=== PATIENT | female | born 1950 | race Caucasian/White ===

== ENCOUNTER 2017-03-14 14:59 | Outpatient (CLI) | payer BC ==
--- NOTE | 2017-03-14 16:31 | CT ---
CT LUMBAR SPINE NONCONTRAST: Date: 03/14/17 HISTORY: Low back pain. FINDINGS: Vertebral body heights and AP alignment are maintained. S-shaped rotatory scoliotic curvature is appa rent on the coronal images. There is osteophytosis throughout the vertebral bodies and facets. Images including the abdomen show diffuse hypodensity of the liver. There is calcification in the art erial structures. T12-L1 and L1-L2: Mild osteophytosis is present. The central canal and neural foramina are patent. L2-3: Posterior disc bulge, along with facet joint hypertrophy and ligamentous thickening, result in mild c entral canal and left foraminal stenosis. L3-L4: Posterior disc bulge, along with facet joint hypertrophy and ligamentous thickening, result in mild s tenosis of the central canal at each neural foramen. L4-5: Posterior disc bulge, along with facet joint hypertrophy and ligamentous thickening, result in mild s tenosis of the central canal. There is mild right and moderate left foraminal stenosis. L5-S1: Mild osteophytosis is present. The central canal and neural foramina remain patent. IMPRESSION: 1. Mild multilevel degenerative changes throughout the lumbar spine, with central canal and foramina l stenosis as detailed above. 2. Atherosclerosis. POS: KATHIE
== END 2017-03-14 15:00 | disposition home or self-care (01) ==
LOC: SCSCT 14:59
PROVIDERS: ATTEND Specialist
DX: M51.16 Intervertebral disc disorders with radiculopathy, lumbar region (principal); M99.83 Other biomechanical lesions of lumbar region; I70.90 Unspecified atherosclerosis
CPT/HCPCS: 72131

== ENCOUNTER 2017-04-01 08:39 | Outpatient (CLI) | payer BC ==
[2017-04-01 09:51] LABS: Hemoglobin 14.2 g/dL (12.0-16.0)
[2017-04-01 10:12] LABS: Anion Gap 12 mmol/L (10-20); BUN (Urea Nitrogen) 19 mg/dL (9.8-20.1); Calc. Creatinine Clearance 0 mL/min (70-130); Calcium 10.4 mg/dL (7.8-10.44); Carbon Dioxide 28 mmol/L (23-31); Chloride 101 mmol/L (98-107); Estimated GFR-MDRD 68; Glucose 111 mg/dL (80-115); Potassium 4.4 mmol/L (3.5-5.1); Sodium 137 mmol/L (136-145)
--- NOTE | 2017-06-08 13:35 | EKG ---
Test Reason : Blood Pressure : / mmHG Vent. Rate : 068 BPM Atrial Rate : 068 BPM P-R Int : 140 ms QRS Dur : 082 ms QT Int : 408 ms P-R-T Axes : 034 000 040 degrees QTc Int : 433 ms Normal sinus rhythm Normal ECG When compared with ECG of 27-OCT-2015 10:41, No significant change was found Confirmed by BEV FIGUEROA MD ([id number]) on 06/08/2017 1:35:24 PM Referred By: CHIRAG Confirmed By:BEV FIGUEROA MD
== END 2017-04-01 08:40 | disposition home or self-care (01) ==
LOC: LABBT 08:39
PROVIDERS: ATTEND Neurological Surgery
DX: G95.9 Disease of spinal cord, unspecified (principal)
CPT/HCPCS: 80048; 85014; 85018; 93005; 93010

== ENCOUNTER 2017-04-03 06:29 | Day surgery (SDC) | payer BC ==
--- NOTE | 2017-04-03 01:39 | HP ---
HISTORY OF PRESENT ILLNESS: Ms. Lemos is a 67-year-old woman who is known to us for previous ACDF at C6-C7 a few years ago, who returns now with increasing C6 radiculopathies bilaterally. She had a rec ent MRI scan at [facility], which reveals prominent at C5-C6 disk osteophyte complex that ma tches her symptoms rather well. She has had injections by Dr. Gaytan, and while they do help, the y only last for a short-lived period of time. She wants to move forward with surgical intervention i f possible. PAST MEDICAL HISTORY: Significant for hypertension, hyperlipidemia, anxiety, depression, and diabete s. CURRENT MEDICATIONS: Lisinopril, simvastatin, Cymbalta, metformin, aspirin, Prilosec, and vitamin C and D. ALLERGIES: CELEBREX, CIPRO, IODINE, and DOXYCYCLINE. PHYSICAL EXAMINATION: The patient is alert and oriented x3. Gait is normal, no ataxia. Upper extre mity motor exam reveals full strength bilaterally in extremities. Reflexes are equal and prese nt bilaterally at the biceps. There is no notable discernible area of paraesthesia or altered sensat ion to the upper extremities. ASSESSMENT: Cervical radiculopathy. PLAN: Dr. Payton met with the patient, reviewed imaging and ultimately advocated for a reoperation at C5-C6 ACDF with removal of hardware at C6-C7. He explained to the patient the risks, benefits, and alternatives to the procedure. The patient expressed understanding and would like to move forward wi surgery as discussed. I do believe the patient is mentally competent and capable of making medica l decisions for herself and we will move forward with surgery as planned. Catalino Morley PA-C, dictating under Dr. Payton.
[2017-04-03] MEDS ORDERED: Thrombin 5000 UNITS/5 ML VIAL ONE (07:17)
[2017-04-03] MEDS ORDERED: Clindamycin/D5W 900 mg/50 ml Premix Bag ONE (07:24)
[2017-04-03] MEDS ORDERED: Lidocaine 1% w/Epinephrine 1:200K 30 ML VIAL ONE (07:42)
[2017-04-03] MEDS ORDERED: Scopolamine 1.5 mg/72 hour Patch ONE (07:49)
[2017-04-03] MEDS ORDERED: Fentanyl 100 MCG/2 ML VIAL ONE ×2 (08:08→10:06)
[2017-04-03] MEDS ORDERED: Ondansetron HCl/PF 4 MG/2 ML Vial ONE ×2 (10:28→16:30)
--- NOTE | 2017-04-03 10:58 | OP ---
DATE OF PROCEDURE: 04/03/2017 SURGEON: Jameel Payton M.D. BUFFING WHEEL FORMER AUTOMATIC: Catalino Morley PA-C. COSURGEON: Dr. Goldy Ramos. DIAGNOSIS: Cervical radiculopathy. PROCEDURES PERFORMED: Removal of anterior cervical instrumentation, anterior cervical diskectomy and fusion, C5-C6. ANESTHESIA: General. TECHNIQUE: The patient was brought in to the operating room and placed under general anesthesia. Sh e was placed on the table in a supine position. The old anterior cervical incision was identified an d prepped and draped in the usual sterile fashion. Following an appropriate operative pause, Dr. Drake entered the field and was responsible for the exposure down to the prevertebral space, whi ch will be dictated in a separate note. Once the access was gained to the prevertebral space, we scarlett ntified the old plate, which was removed in its entirety. We then redirected our attention to the le sarah above where an annulotomy was performed in the C5-C6 disk space. All disk materials as well as a nterior and posterior osteophytes were removed. After complete decompression, a 6 mm lordotic PEEK c age packed with allograft and autograft material was placed within the interbody space. An anterior cervical plate was then fashioned to the front of the spine and secured with a total of 4 fixed screw s. Midline and lateral structures were inspected and found to be free from significant trauma. The wound was irrigated. Hemostasis was maintained throughout. The wound was then closed in anatomic la yers and a pressure dressing was applied. There were no known procedural complications.
[2017-04-03] MEDS ORDERED: HYDROcodone/Acetaminophen 5/325 mg Tablet ONE (12:32)
[2017-04-03] MEDS ORDERED: Lidocaine 1% PF 5 ML VIAL ONE (16:30)
[2017-04-03] MEDS ORDERED: PHENYLEPHRINE-NS 100 MCG/ML 10 ML SYRINGE ONE (16:30)
[2017-04-03] MEDS ORDERED: PROPOFOL 200 MG/20 ML VIAL ONE (16:30)
[2017-04-03] MEDS ORDERED: Dexamethasone 20 MG/5 ML VIAL ONE (16:30)
[2017-04-03] MEDS ORDERED: ePHEDrine/0.9% NaCl/PF SYRINGE 50 mg/10 ml ONE (16:30)
--- NOTE | 2017-04-04 17:33 | OP ---
PREOPERATIVE DIAGNOSES: 1. Cervical myelopathy. 2. Need for anterior approach for anterior cervical diffuse in surgery. SURGEON: Goldy Ramos M.D. CANE LOADER: Catalino Morley PA-C ESTIMATED BLOOD LOSS: 0 mL. ANESTHESIA: GETA with laryngeal nerve monitor. PROCEDURE: Anterior approach for anterior cervical disc fusion surgery. PROCEDURE IN DETAIL: The patient was taken to the operating room and placed on the table. General e ndotracheal anesthesia was obtained by the Anesthesia staff. Using the direct laryngoscope, the skyler ngeal electrodes were confirmed to be between the true vocal cords bilaterally. Tube was then secure d in the midline of the upper lip. Following this, a shoulder roll was placed. The patient was then prepped and draped in standard surgical fashion. Following this, a previous incision was then reinc ised using a 10 blade and was carried through skin, subcutaneous tissue, and the platysmal layer. Paz bplatysmal flaps were elevated superiorly and inferiorly and the skin was retracted. Following this, the sternocleidomastoid muscle was identified and dissection was carried medial and anterior to the sternocleidomastoid. The laryngeal apparatus along with the recurrent laryngeal nerve was retracted medially as the great vessels were retracted laterally. Adequate exposure of the previous plate was provided for Dr. Douglas Payton who continued the procedure. At this point, the procedure was turned over to Dr. Douglas Payton for completion.
== END 2017-04-03 13:05 | disposition home or self-care (01) ==
LOC: SDC 06:29
PROVIDERS: ATTEND Neurological Surgery
PROC: 0RT30ZZ Resection of Cervical Vertebral Disc, Open Approach (ICD-10-PCS; principal; 2017-04-03)
PROC: 0RG10A0 Fusion of Cervical Vertebral Joint with Interbody Fusion Device, Anterior Approach, Anterior Column, Open Approach (ICD-10-PCS; principal; 2017-04-03)
DX: M54.12 Radiculopathy, cervical region (principal); M25.78 Osteophyte, vertebrae; G95.9 Disease of spinal cord, unspecified; I10 Essential (primary) hypertension; E78.5 Hyperlipidemia, unspecified; F32.9 Major depressive disorder, single episode, unspecified; F41.9 Anxiety disorder, unspecified; E11.9 Type 2 diabetes mellitus without complications; K21.9 Gastro-esophageal reflux disease without esophagitis; M81.0 Age-related osteoporosis without current pathological fracture; Z14.8 Genetic carrier of other disease; Z86.73 Personal history of transient ischemic attack (TIA), and cerebral infarction without residual deficits; Z91.81 History of falling; Z79.82 Long term (current) use of aspirin; Z79.84 Long term (current) use of oral hypoglycemic drugs; Z79.899 Other long term (current) drug therapy; Z88.1 Allergy status to other antibiotic agents; Z88.6 Allergy status to analgesic agent; Z91.013 Allergy to seafood; Z91.030 Bee allergy status; Z91.041 Radiographic dye allergy status; Z98.51 Tubal ligation status; Z98.1 Arthrodesis status; Z90.710 Acquired absence of both cervix and uterus; Z90.722 Acquired absence of ovaries, bilateral; Z98.890 Other specified postprocedural states
CPT/HCPCS: 76001; 96374; C1713; C1776; J1100; J2001; J2405; J2704; J3010; J3490

== ENCOUNTER 2017-05-16 08:46 | Outpatient (CLI) | payer BC ==
--- NOTE | 2017-05-16 09:44 | RAD ---
THERE VIEWS CERVICAL SPINE: Date: 04-19-14 History: Re-evaluate surgery, cervical radiculopathy. FINDINGS: Anterior discectomy and fusion hardware present at C5-6. There is an intervertebral disc device at C5 -6 and C6-7. No significant anterolisthesis or retrolisthesis seen within the cervical spine. There is mild soft t issue swelling in the prevertebral space ventral to the anterior screw and plate fixation hardware, l ikely associated with recent surgery. Clinical correlation is required. Open mouth odontoid view demo nstrates a normal appearing dens and C1-2 articulation. There is mild increased interstitial density within bilateral lung apices. Frontal imaging demonstrates bilateral mid cervical spine facet and uncal vertebral osteophyte format ion, the most significant finding being right sided uncal vertebral osteophyte formation at C5-6 and C6-7. IMPRESSION: Post-operative and degenerative changes as described above. No adverse features seen. POS: KATHIE
== END 2017-05-16 08:47 | disposition home or self-care (01) ==
LOC: TBSIIMAG 08:46
PROVIDERS: ATTEND Neurological Surgery
DX: M47.22 Other spondylosis with radiculopathy, cervical region (principal); Z98.1 Arthrodesis status
CPT/HCPCS: 72040

== ENCOUNTER 2017-05-22 07:45 | Day surgery (SDC) | payer BC ==
[2017-05-21 12:03] VITALS: BMI 26.9
[2017-05-22 09:38] LABS: Hemoglobin 14.1 g/dL (12.0-16.0)
[2017-05-22] MEDS ORDERED: Scopolamine 1.5 mg/72 hour Patch ONE (09:45)
[2017-05-22 10:00] LABS: Anion Gap 12 mmol/L (10-20); BUN (Urea Nitrogen) 15 mg/dL (9.8-20.1); Calc. Creatinine Clearance 62 mL/min (70-130); Calcium 9.7 mg/dL (7.8-10.44); Carbon Dioxide 29 mmol/L (23-31); Chloride 105 mmol/L (98-107); Estimated GFR-MDRD 57; Glucose 118 mg/dL (80-115); Potassium 4.3 mmol/L (3.5-5.1); Sodium 142 mmol/L (136-145)
[2017-05-22] MEDS ORDERED: EPINEPHrine 1 MG/ML AMP ONE (10:07)
[2017-05-22] MEDS ORDERED: Fentanyl 250 MCG/5 ML VIAL ONE (10:17)
[2017-05-22] MEDS ORDERED: Midazolam HCl 2 mg/2 ml Vial ONE (10:17)
[2017-05-22] MEDS ORDERED: Propofol 500 MG/50 ML VIAL ONE (10:17)
[2017-05-22] MEDS ORDERED: Fentanyl 100 MCG/2 ML VIAL ONE (11:25)
[2017-05-22] MEDS ORDERED: PROPOFOL 200 MG/20 ML VIAL ONE (13:27)
[2017-05-22] MEDS ORDERED: Ondansetron HCl/PF 4 MG/2 ML Vial ONE (13:27)
[2017-05-22] MEDS ORDERED: Succinylcholine Chloride 20 MG/ML 10 ml SYRINGE FS ONE (13:27)
[2017-05-22] MEDS ORDERED: Dexamethasone 20 MG/5 ML VIAL ONE (13:27)
[2017-05-22] MEDS ORDERED: Lidocaine 1% PF 5 ML VIAL ONE (13:27)
[2017-05-22] MEDS ORDERED: Hydrocodone-Acetamin 15 ML UDCUP ONE (13:28)
--- NOTE | 2017-05-23 14:33 | OP ---
PREOPERATIVE DIAGNOSES: 1. Right true vocal cord paralysis. 2. Hoarseness. POSTOPERATIVE DIAGNOSES: 1. Right true vocal cord paralysis. 2. Hoarseness. PROCEDURES: 1. Right true vocal cord medialization laryngoplasty with Prolaryn injection. 2. Microsuspension direct laryngoscopy. SURGEON: Goldy Ramos M.D. ESTIMATED BLOOD LOSS: 0 mL. COMPLICATIONS: None. ANESTHESIA: GETA. DESCRIPTION OF PROCEDURE: The patient was taken to the operating room and placed on the table. A ma sk anesthesia was obtained by the Anesthesia staff. Head of bed was turned 90 degrees. Shoulder rol l was placed. Following this, the Dedo laryngoscope was then used to examine the oral cavity and michelle pharynx and hypopharynx, which was all noted to be clear. Protective tooth guard was placed. The la ryngeal structures were then identified, were all noted to be without any mucosal abnormalities. The patient was then placed in suspension and 400 mm lens was then used to visualize the true vocal cord s. Right anterior vocal cord was punctured on the anterior third and the middle 2/3 with . Pat ient tolerated the procedure well.
--- NOTE | 2017-06-17 11:14 | EKG ---
Test Reason : PREOP Blood Pressure : / mmHG Vent. Rate : 074 BPM Atrial Rate : 074 BPM P-R Int : 146 ms QRS Dur : 078 ms QT Int : 424 ms P-R-T Axes : 030 -02 038 degrees QTc Int : 470 ms Normal sinus rhythm Normal ECG When compared with ECG of 01-APR-2017 09:28, (Unconfirmed) No significant change was found Confirmed by FLOWER HELTON M.D. ([id number]) on 06/17/2017 11:13:48 AM Referred By: VITOR Confirmed By:FLOWER HELTON M.D.
--- NOTE | 2017-06-17 11:22 | EKG ---
Test Reason : Blood Pressure : / mmHG Vent. Rate : 080 BPM Atrial Rate : 080 BPM P-R Int : 144 ms QRS Dur : 080 ms QT Int : 398 ms P-R-T Axes : 032 000 038 degrees QTc Int : 459 ms Normal sinus rhythm Normal ECG When compared with ECG of 22-MAY-2017 09:31, (Unconfirmed) No significant change was found Confirmed by FLOWER HELTON M.D. ([id number]) on 06/17/2017 11:21:47 AM Referred By: QUINN Confirmed By:FLOWER HELTON M.D.
== END 2017-05-22 14:18 | disposition home or self-care (01) ==
LOC: SDC 07:45
PROVIDERS: ATTEND Otolaryngology Plastic Surgery within the Head & Neck
PROC: 3E0F8GC Introduction of Other Therapeutic Substance into Respiratory Tract, Via Natural or Artificial Opening Endoscopic (ICD-10-PCS; principal; 2017-05-22)
DX: Z79.82 Long term (current) use of aspirin; Z79.51 Long term (current) use of inhaled steroids; Z14.8 Genetic carrier of other disease; J38.00 Paralysis of vocal cords and larynx, unspecified; Z91.030 Bee allergy status; Z86.73 Personal history of transient ischemic attack (TIA), and cerebral infarction without residual deficits; I10 Essential (primary) hypertension; Z88.1 Allergy status to other antibiotic agents; M81.0 Age-related osteoporosis without current pathological fracture; Z79.84 Long term (current) use of oral hypoglycemic drugs; K21.9 Gastro-esophageal reflux disease without esophagitis; Z91.013 Allergy to seafood; F32.9 Major depressive disorder, single episode, unspecified; E78.5 Hyperlipidemia, unspecified; E11.9 Type 2 diabetes mellitus without complications; Z91.041 Radiographic dye allergy status; Z79.899 Other long term (current) drug therapy; Z88.6 Allergy status to analgesic agent
CPT/HCPCS: 80048; 85014; 85018; 93005; 93010; 96374; J0171; J1100; J2001; J2250; J2405; J2704; J3010

== ENCOUNTER 2018-01-28 08:05 | Outpatient (CLI) | payer MEDICARE ==
--- NOTE | 2018-01-28 11:08 | MRI ---
MRI CERVICAL SPINE WITHOUT CONTRAST: HISTORY: Cervical fusion. Cervical radiculopathy. COMPARISON: 06/08/2014 TECHNIQUE: A cervical spine MRI is performed without intravenous Gadolinium administration. Multisequential, mu ltiplanar imaging is performed. FINDINGS: There is an anterior fusion plate with a transvertebral body screw at C5-C6. The prostheses are at t he C5-C6 and the C6-C7 disk spaces, as noted. Associated metallic susceptibility artifact. No signi ficant STIR hyperintensity to suggest vertebral body edema or ligamentous injury. Straightening of normal cervical lordosis is presumed to be due to position. There is 1.5 mm of ante rolisthesis of C4 upon C5. The visualized brain parenchyma, the cervicomedullary junction, the cervical cord, and the upper thor acic cord have normal size and signal intensity. C2-C3: No significant disk osteophyte complex. No significant central canal stenosis. The foramina are patent. C3-C4: No significant disk osteophyte complex. No significant central canal stenosis. The foramina are patent. C4-C5: No significant disk osteophyte complex. No significant central canal stenosis. Mild right f oraminal narrowing due to hypertrophic changes of the right uncovertebral joint. The left neural for amen is patent. C5-C6: Central osteophyte ridge with mild central canal stenosis. Hypertrophic change in both uncov ertebral joints results in moderate to severe right and moderate left foraminal narrowing. C6-C7: Broad-based osteophyte ridge. There is mild central canal stenosis. Hypertrophic changes of the bilateral uncovertebral joints results in severe right and moderate to severe left neural forami nal narrowing. C7-T1: Broad-based disk osteophyte complex with central disk material. There is at least mild centr al canal stenosis. Hypertrophic changes result in severe right and moderate to severe left foraminal narrowing. IMPRESSION: 1. Extensive degenerative change of the cervical spine, as above. Varying degrees of central canal stenosis and foraminal narrowing, as above. 2. Post surgical changes, as above. POS: KATHIE
== END 2018-01-28 08:06 | disposition home or self-care (01) ==
LOC: SCSMRI 08:05
PROVIDERS: ATTEND Neurological Surgery
DX: M47.22 Other spondylosis with radiculopathy, cervical region (principal); M48.02 Spinal stenosis, cervical region; Z98.1 Arthrodesis status
CPT/HCPCS: 72141

== ENCOUNTER 2018-03-20 08:51 | Outpatient (CLI) | payer MEDICARE ==
--- NOTE | 2018-03-20 09:29 | MMO ---
BILATERAL DIGITAL SCREENING MAMMOGRAMS: History: 67-year-old female presents for digital screening mammography. Comparison: 03-13-18, 02-23-17, 01-21-15, 16-14 This study is interpreted with the assistance of computer aided detection. FINDINGS: Scattered areas of fibroglandular density are noted bilaterally. Typically benign calcification in th e right breast. Scattered areas of parenchymal density asymmetry noted bilaterally, stable. IMPRESSION: BIRADS category 2 - benign findings. Continue routine screening. POS: KATHIE
== END 2018-03-20 08:52 | disposition home or self-care (01) ==
LOC: SCSMAMMO 08:51
PROVIDERS: ATTEND Nurse Practitioner Family
DX: Z12.31 Encounter for screening mammogram for malignant neoplasm of breast (principal)
CPT/HCPCS: 77067

== ENCOUNTER 2018-04-08 11:31 | Outpatient (CLI) | payer MEDICARE ==
--- NOTE | 2018-04-08 12:32 | RAD ---
LEFT SHOULDER THREE VIEWS: HISTORY: Pain. COMPARISON: None. FINDINGS: There is a large subacromial spur. No fracture. No malalignment. The ribs are unremarkable. IMPRESSION: Large subacromial spur can be cause of rotator cuff arthropathy. POS: TPC
--- NOTE | 2018-04-08 14:00 | RAD ---
RIGHT SHOULDER THREE VIEWS: History: Shoulder pain. Comparison: FINDINGS: No fracture. No malalignment. Small subacromial spur. Ribs unremarkable. IMPRESSION: 1. No acute abnormality. 2. Subacromial spur near the subacromial space. This can be a casue of rotator cuff arthropathy. POS: TPC
== END 2018-04-08 11:32 | disposition home or self-care (01) ==
LOC: RAD 11:31
PROVIDERS: ATTEND Nurse Practitioner Family
DX: M25.511 Pain in right shoulder (principal); M25.512 Pain in left shoulder; M75.92 Shoulder lesion, unspecified, left shoulder; M75.91 Shoulder lesion, unspecified, right shoulder

== ENCOUNTER 2018-11-12 06:29 | Day surgery (SDC) | payer MEDICARE ==
[2018-11-11 12:58] VITALS: BMI 27.1
[2018-11-12] MEDS ORDERED: Famotidine/PF 20 mg/2ml Vial ONE (08:09)
[2018-11-12] MEDS ORDERED: Ondansetron PF 4 MG/2 ML Vial ONE (08:09)
[2018-11-12] MEDS ORDERED: Scopolamine 1.5 mg/72 hour Patch ONE (08:09)
[2018-11-12 08:16] LABS: Hemoglobin 14.6 g/dL (12.0-16.0); Mean Corpuscular HGB CONC 35.2 g/dL (32.0-36.0); Mean Corpuscular Hemoglobin 32.5 pg (27.0-31.0); Mean Corpuscular Volume 92.4 fL (78.0-98.0); Mean Platelet Volume 6.6 fL (7.4-10.4); Platelet Count 299 thou/uL (130-400); RBC Distribution Width 11.5 % (11.5-14.5); Red Blood Cell (RBC) Count 4.47 mill/uL (4.20-5.40); White Blood Cell (WBC) Count 7.2 thou/uL (4.8-10.8)
[2018-11-12] MEDS ORDERED: Ferric Subsulfate (ASTRINGYN) 8 ML VIAL ONE (08:21)
[2018-11-12] MEDS ORDERED: PROPOFOL 60 ML ONE (08:25)
[2018-11-12] MEDS ORDERED: Fentanyl 100 MCG/2 ML VIAL ONE ×2 (08:25→09:03)
[2018-11-12 08:49] LABS: Anion Gap 13 mmol/L (10-20); BUN (Urea Nitrogen) 13 mg/dL (9.8-20.1); Calc. Creatinine Clearance 62 mL/min (70-130); Calcium 9.5 mg/dL (7.8-10.44); Carbon Dioxide 26 mmol/L (23-31); Chloride 103 mmol/L (98-107); Estimated GFR-MDRD 57; Glucose 128 mg/dL (80-115); Potassium 4.1 mmol/L (3.5-5.1); Sodium 138 mmol/L (136-145)
--- NOTE | 2018-11-13 10:16 | OP ---
DATE OF PROCEDURE: 11/12/2018 PREOPERATIVE DIAGNOSIS: Chronic right tonsillitis. POSTOPERATIVE DIAGNOSIS: Chronic right tonsillitis. PROCEDURE PERFORMED: Right tonsillectomy. ESTIMATED BLOOD LOSS: 0 mL. COMPLICATIONS: None. ANESTHESIA: GETA. DESCRIPTION OF PROCEDURE: The patient was taken to the operating room, placed supine on the table, general endotracheal anesthesia was obtained by the anesthesia staff. Tube was secured in the midline of the lower lip. Following this, Nixon-Ruiz mouth gag was introduced and was retracted. There was a submucosal mucocele versus remnant tonsil present in the superior tonsil bed. This was grasped with a curved Allis clamp and a Bovie electrocautery device was used to perform a subcapsular tonsillectomy on this right side. Hemostasis was obtained. The wound was irrigated. The patient tolerated the procedure well. Job ID: [id number]
== END 2018-11-12 11:50 | disposition home or self-care (01) ==
LOC: SDC 06:29
PROVIDERS: ATTEND Otolaryngology Plastic Surgery within the Head & Neck
PROC: 0CBPXZZ Excision of Tonsils, External Approach (ICD-10-PCS; principal; 2018-11-12)
DX: J35.01 Chronic tonsillitis (principal); I10 Essential (primary) hypertension; E78.5 Hyperlipidemia, unspecified; E11.9 Type 2 diabetes mellitus without complications; K21.9 Gastro-esophageal reflux disease without esophagitis; M81.0 Age-related osteoporosis without current pathological fracture; M54.12 Radiculopathy, cervical region; J30.1 Allergic rhinitis due to pollen; J30.81 Allergic rhinitis due to animal (cat) (dog) hair and dander; J30.89 Other allergic rhinitis; E78.00 Pure hypercholesterolemia, unspecified; F32.9 Major depressive disorder, single episode, unspecified; Z86.73 Personal history of transient ischemic attack (TIA), and cerebral infarction without residual deficits; Z79.84 Long term (current) use of oral hypoglycemic drugs; Z79.899 Other long term (current) drug therapy; Z88.1 Allergy status to other antibiotic agents; Z88.5 Allergy status to narcotic agent; Z88.6 Allergy status to analgesic agent; Z91.013 Allergy to seafood; Z91.030 Bee allergy status; Z91.041 Radiographic dye allergy status
CPT/HCPCS: 80048; 85027; 88304; 93005; 93010; J0131; J2405; J2704; J3010; S0028

== ENCOUNTER 2020-05-05 13:48 | Outpatient (CLI) | payer MEDICARE | END 2020-05-05 13:49 | disposition home or self-care (01) | LOC: TBSIIMAG 13:48 | PROVIDERS: ATTEND Neurological Surgery | DX: M47.22 Other spondylosis with radiculopathy, cervical region (principal); M50.11 Cervical disc disorder with radiculopathy, high cervical region; Z98.1 Arthrodesis status | CPT/HCPCS: 72141 ==

== ENCOUNTER 2020-12-01 09:23 | Outpatient (CLI) | payer MEDICARE ==
[2020-12-01 11:17] LABS: #Basophils 0.1 10x3/uL (0.0-0.2); #Eosinphils 0.2 10x3/uL (0.0-0.5); #Monocytes 0.7 10x3/uL (0.0-1.1); #Neutrophils 2.9 10x3/uL (1.5-8.4); %Basophils 0.8 % (0.0-2.0); %Eosinophils 3.1 % (0.0-6.0); %Lymphocytes 47.6 % (18.0-47.0); %Monocytes 9.2 % (0.0-10.0); Hemoglobin 12.7 g/dL (12.0-15.5); Mean Corpuscular HGB CONC 32.6 g/dL (32.0-36.0); Mean Corpuscular Hemoglobin 31.2 pg (27.0-33.0); Mean Corpuscular Volume 95.8 fl (81.6-98.3); Mean Platelet Volume 9.2 fl (7.4-10.4); Platelet Count 308 10x3/uL (150-450); RBC Distribution Width 13.5 % (11.5-14.5); Red Blood Cell (RBC) Count 4.07 10x6/uL (3.90-5.03); White Blood Cell (WBC) Count 7.4 10x3/uL (3.5-10.5)
[2020-12-01 11:25] LABS: Anion Gap 15 mmol/L (10-20); BUN (Urea Nitrogen) 14 mg/dL (9.8-20.1); Calc. Creatinine Clearance 0 mL/min (70-130); Calcium 10.1 mg/dL (7.8-10.44); Carbon Dioxide 25 mmol/L (23-31); Chloride 105 mmol/L (98-107); Glucose 127 mg/dL (80-115); Potassium 4.2 mmol/L (3.5-5.1); Sodium 141 mmol/L (136-145)
[2020-12-02 01:05] LABS: SARS-CoV-2 PCR by NAA Not Detected (NotDetected)
== END 2020-12-01 09:24 | disposition home or self-care (01) ==
LOC: LABBT 09:23
PROVIDERS: ATTEND Orthopaedic Surgery Hand Surgery
DX: Z01.818 Encounter for other preprocedural examination (principal); M65.321 Trigger finger, right index finger; M18.0 Bilateral primary osteoarthritis of first carpometacarpal joints; Z20.822 Contact with and (suspected) exposure to COVID-19
CPT/HCPCS: 71046; 80048; 85025; 93005; U0003; U0005; 93010

== ENCOUNTER 2020-12-06 06:02 | Day surgery (SDC) | payer MEDICARE ==
[2020-12-05 11:05] VITALS: BMI 26.2
[2020-12-06] MEDS ORDERED: Neomycin-Polymyxin 1 ML AMP ONE (06:23)
[2020-12-06] MEDS ORDERED: Bupivacaine PF 0.5% 30 ML VIAL ONE (06:23)
[2020-12-06] MEDS ORDERED: Betamet Acet/Betamet Na Ph 30 MG/5 ML VIAL ONE (06:23)
[2020-12-06] MEDS ORDERED: Bacitracin Zinc Ointment 30 gm TUBE ONE (06:23)
[2020-12-06] MEDS ORDERED: Fentanyl 100 MCG/2 ML VIAL ONE ×3 (06:45→06:58)
[2020-12-06] MEDS ORDERED: Scopolamine 1.5 mg/72 hour Patch ONE (06:53)
[2020-12-06] MEDS ORDERED: Midazolam HCl 2 mg/2 ml Vial ONE ×2 (06:53→06:55)
[2020-12-06] MEDS ORDERED: Lidocaine 1% (PF) 30 ML VIAL ONE (06:55)
[2020-12-06] MEDS ORDERED: Dexamethasone 20 MG/5 ML VIAL ONE (07:22)
[2020-12-06] MEDS ORDERED: Bupivacaine HCl 0.5%/Epinephrine 1:200,000/PF 30 ml Vial ONE (07:22)
[2020-12-06] MEDS ORDERED: Lidocaine 1% PF 5 ML VIAL ONE (07:22)
[2020-12-06] MEDS ORDERED: Metoclopramide HCl 10 MG/2 ML VIAL ONE (07:22)
[2020-12-06] MEDS ORDERED: Ondansetron PF 4 MG/2 ML Vial ONE (07:22)
[2020-12-06] MEDS ORDERED: PROPOFOL 200 MG/20 ML VIAL ONE (07:22)
== END 2020-12-06 12:15 | disposition home or self-care (01) ==
LOC: SDC 06:02
PROVIDERS: ATTEND Orthopaedic Surgery Hand Surgery
PROC: 0LN70ZZ Release Right Hand Tendon, Open Approach (ICD-10-PCS; principal; 2020-12-06)
PROC: 0LX50ZZ Transfer Right Lower Arm and Wrist Tendon, Open Approach (ICD-10-PCS; 2020-12-06)
PROC: 0RUS07Z Supplement Right Carpometacarpal Joint with Autologous Tissue Substitute, Open Approach (ICD-10-PCS; 2020-12-06)
PROC: 3E0T3BZ Introduction of Anesthetic Agent into Peripheral Nerves and Plexi, Percutaneous Approach (ICD-10-PCS; 2020-12-06)
DX: M18.0 Bilateral primary osteoarthritis of first carpometacarpal joints (principal); M65.321 Trigger finger, right index finger; M72.0 Palmar fascial fibromatosis [Dupuytren]; M65.4 Radial styloid tenosynovitis [de Quervain]; G56.03 Carpal tunnel syndrome, bilateral upper limbs; E78.5 Hyperlipidemia, unspecified; I10 Essential (primary) hypertension; E11.9 Type 2 diabetes mellitus without complications; K21.9 Gastro-esophageal reflux disease without esophagitis; M81.0 Age-related osteoporosis without current pathological fracture; Z86.73 Personal history of transient ischemic attack (TIA), and cerebral infarction without residual deficits; Z79.83 Long term (current) use of bisphosphonates; Z79.84 Long term (current) use of oral hypoglycemic drugs; Z79.899 Other long term (current) drug therapy; Z88.1 Allergy status to other antibiotic agents; Z88.5 Allergy status to narcotic agent; Z88.6 Allergy status to analgesic agent; Z91.013 Allergy to seafood; Z91.030 Bee allergy status; Z91.041 Radiographic dye allergy status; Z98.1 Arthrodesis status; Z98.890 Other specified postprocedural states
CPT/HCPCS: 76000; J0702; J1100; J2001; J2250; J2405; J2704; J2765; J3010; J3370; S0020

== ENCOUNTER 2022-05-04 10:14 | Outpatient (CLI) | payer MEDICARE ==
[2022-05-04 12:02] LABS: #Basophils 0.1 10x3/uL (0.0-0.2); #Eosinphils 0.3 10x3/uL (0.0-0.5); #Monocytes 0.7 10x3/uL (0.0-1.1); #Neutrophils 3.9 10x3/uL (1.5-8.4); %Basophils 0.8 % (0.0-2.0); %Eosinophils 2.8 % (0.0-6.0); %Lymphocytes 49.4 % (18.0-47.0); %Monocytes 7.4 % (0.0-10.0); %Neutrophils 39.4 % (40.0-75.0); Hemoglobin 12.4 g/dL (12.0-15.5); Mean Corpuscular Hemoglobin 30.7 pg (27.0-33.0); Mean Corpuscular Volume 93.1 fl (81.6-98.3); Mean Platelet Volume 9.2 fl (7.4-10.4); Platelet Count 365 10x3/uL (150-450); RBC Distribution Width 12.8 % (11.5-14.5); Red Blood Cell (RBC) Count 4.04 10x6/uL (3.90-5.03); White Blood Cell (WBC) Count 9.9 10x3/uL (3.5-10.5)
== END 2022-05-04 10:15 | disposition home or self-care (01) ==
LOC: LABBT 10:14
PROVIDERS: ATTEND Orthopaedic Surgery Hand Surgery
DX: Z01.818 Encounter for other preprocedural examination (principal); M65.311 Trigger thumb, right thumb; S63.696A Other sprain of right little finger, initial encounter
CPT/HCPCS: 85025; 93005; 93010

== ENCOUNTER 2022-06-20 10:11 | Outpatient (CLI) | payer MEDICARE | END 2022-06-20 10:12 | disposition home or self-care (01) | LOC: ULT 10:11 | PROVIDERS: ATTEND Family Medicine | DX: M79.662 Pain in left lower leg (principal) ==

== ENCOUNTER 2022-06-29 11:01 | Outpatient (CLI) | payer MEDICARE | END 2022-06-29 11:02 | disposition home or self-care (01) | LOC: SCSRAD 11:01 | PROVIDERS: ATTEND Nurse Practitioner Family | DX: M54.16 Radiculopathy, lumbar region (principal) | CPT/HCPCS: 72100 ==

== ENCOUNTER 2022-11-29 12:50 | Outpatient (CLI) | payer MEDICARE | END 2022-11-29 12:51 | disposition home or self-care (01) | LOC: ULT 12:50 | PROVIDERS: ATTEND Surgery | DX: R59.0 Localized enlarged lymph nodes (principal) | CPT/HCPCS: 76999 ==

== ENCOUNTER 2023-02-06 12:59 | Outpatient (CLI) | payer MEDICARE ==
[2023-02-06] MEDS ORDERED: Bacteriostatic Normal Saline 30 ML VIAL ONE (14:32)
== END 2023-02-06 13:00 | disposition home or self-care (01) ==
LOC: NM 12:59
PROVIDERS: ATTEND Internal Medicine Gastroenterology
DX: R10.13 Epigastric pain (principal); R10.11 Right upper quadrant pain
CPT/HCPCS: 78227; A9537